=== PATIENT | male | born 1990 | race Caucasian/White ===

== ENCOUNTER 2017-08-17 10:04 | Emergency (ER) | payer OTHER ==
[~2017-08-17] VITALS: Ht 188 cm; Wt 95.7 kg
[~2017-08-17 10:04] MED LIST: ASACOL HD800 MG PO; NAPROXEN500 MG PO; NOHOMEMEDS; OXYCODONE HCL5 MG PO; PREDNISONE10 MG PO; ULTRAM50 MG PO
[2017-08-17 10:20] VITALS: BP 137/78
[2017-08-17] MEDS ORDERED: FLAGYL500 MG PO (10:46)
== END 2017-08-17 11:07 | disposition home or self-care (01) ==
LOC: EME 10:04
DX: R36.9 Urethral discharge, unspecified (principal); Z20.2 Contact with and (suspected) exposure to infections with a predominantly sexual mode of transmission; Z86.19 Personal history of other infectious and parasitic diseases
CPT/HCPCS: 99281; 99284; J0696